=== PATIENT | female | born 1990 | race Caucasian/White ===

== ENCOUNTER 2016-11-14 17:52 | Outpatient (CLI) | payer MEDICAID ==
[~2016-11-14] VITALS: Ht 165.1 cm; Wt 85.0 kg
[~2016-11-14 17:52] MED LIST: PRENATAL1 TA7 PO
[2016-11-14 18:08] VITALS: BP 100/69; PULSE 73; TEMP 98.8
[2016-11-14] MEDS ORDERED: MAKENA250 MG/1 M IM (18:13)
[2016-11-14 18:30] VITALS: BP 100/69; PULSE 73
[2016-11-14 19:00] VITALS: BP 106/68; PULSE 72; TEMP 97.8
[2016-11-14 19:19] LABS: PH 7 (5-8); SQUAMOUS EPITHELIAL 0-2 /hpf; URINE APPEARANCE Clear; URINE BACTERIA Rare /hpf; URINE BILIRUBIN Negative (NEGATIVE); URINE BLOOD Negative (NEGATIVE); URINE COLOR Yellow; URINE GLUCOSE Negative (NEGATIVE); URINE KETONE Negative (NEGATIVE); URINE RBC 0-2 /hpf; URINE UROBILINOGEN Negative (NEGATIVE); URINE WBC 0-2 /hpf
[2016-11-14 19:25] VITALS: BP 103/61; PULSE 73
== END 2016-11-14 19:37 | disposition home or self-care (01) ==
LOC: LDRO 17:52
PROVIDERS: Student in an Organized Health Care Education/Training Program
DX: O99.89 Other specified diseases and conditions complicating pregnancy, childbirth and the puerperium (principal); R10.9 Unspecified abdominal pain; Z3A.23 23 weeks gestation of pregnancy
CPT/HCPCS: J0702; J7120

== ENCOUNTER 2016-11-26 21:08 | Outpatient (CLI) | payer MEDICAID ==
[~2016-11-26 21:08] MED LIST changes: +MAKENA250 MG/1 M IM
[2016-11-26 21:30] VITALS: BP 123/71; PULSE 80
== END 2016-11-26 22:36 | disposition home or self-care (01) ==
LOC: LDRO 21:08
DX: N89.8 Other specified noninflammatory disorders of vagina (principal); Z3A.25 25 weeks gestation of pregnancy

== ENCOUNTER 2016-12-04 18:11 | Outpatient (CLI) | payer MEDICAID ==
[~2016-12-04] VITALS: Ht 160 cm; Wt 84.1 kg
[2016-12-04 17:38] VITALS: BP 105/67; PULSE 80; TEMP 98.1
[2016-12-04 17:45] VITALS: BP 105/67; PULSE 80; TEMP 98.1
== END 2016-12-04 19:10 | disposition home or self-care (01) ==
LOC: LDRO 18:11
DX: O26.893 Other specified pregnancy related conditions, third trimester (principal); M54.9 Dorsalgia, unspecified; Z3A.26 26 weeks gestation of pregnancy

== ENCOUNTER 2016-12-25 12:02 | Outpatient (CLI) | payer MEDICAID ==
[~2016-12-25] VITALS: Ht 165.1 cm; Wt 88.6 kg
[2016-12-25 12:21] VITALS: BP 109/67; PULSE 82; TEMP 98.1
[2016-12-25] MEDS ORDERED: FLAGYL500 MG PO (12:27)
== END 2016-12-25 14:10 | disposition home or self-care (01) ==
LOC: LDRO 12:02 → LDR 12:10 → LDRO 14:10
DX: O46.93 Antepartum hemorrhage, unspecified, third trimester (principal); O32.1XX0 Maternal care for breech presentation, not applicable or unspecified; N89.8 Other specified noninflammatory disorders of vagina; Z3A.29 29 weeks gestation of pregnancy
CPT/HCPCS: OP

== ENCOUNTER 2017-02-13 07:10 | Outpatient (CLI) | payer MEDICAID ==
[~2017-02-13] VITALS: Ht 165.1 cm; Wt 90.0 kg
[2017-02-13 06:14] VITALS: BP 102/64; PULSE 85; TEMP 98.1
[~2017-02-13 07:10] MED LIST changes: +FLAGYL500 MG PO
[2017-02-13 08:15] VITALS: BP 112/71; PULSE 78
[2017-02-13 08:45] VITALS: BP 99/56; PULSE 80
== END 2017-02-13 08:55 | disposition home or self-care (01) ==
LOC: LDRO 07:10
DX: Z34.83 Encounter for supervision of other normal pregnancy, third trimester (principal); Z3A.36 36 weeks gestation of pregnancy

== ENCOUNTER 2017-03-06 07:05 | Inpatient (IN) | payer MEDICAID ==
[2017-03-06] VITALS (44 sets, daily range): BP systolic 74–151; BP diastolic 39–88; PULSE 10–126; TEMP 97.7–98.4
[~2017-03-06] VITALS: Ht 165.1 cm; Wt 90.9 kg
[2017-03-06 08:46] LABS: BASO % 0.4 % (0.0-2.0); EOS # 0.1 (0.0-0.7); EOS % 1.8 % (0-4.0); GRAN % 67.7 % (42.2-75.2); LYMPH # 1.6 (1.2-3.4); LYMPH % 21.8 % (20.0-51.0); MEAN CELL VOLUME 87 fl (80.0-100.0); MEAN CORPUSCULAR HEMOGLOBIN 30 pg (27.0-31.0); MEAN CORPUSCULAR HGB CONC 34 g/dl (33.0-37.0); MEAN PLATELET VOLUME 10.4 fl (7.4-10.4); MONO # 0.6 (0.1-0.6); MONO % 7.6 % (1.7-9.3); PLATELET COUNT 142 K/mm3 (130-400); RED BLOOD COUNT 4.01 M/mm3 (4.10-5.30); REDCELL DISTRIBUTION WIDTH-CV 13.9 % (11.5-14.5); WHITE BLOOD COUNT 7.4 K/mm3 (4.8-10.8)
[2017-03-06 09:06] LABS: HEMATOCRIT 34.9 % (37.0-47.0)
[2017-03-07 03:05] VITALS: BP 112/59; PULSE 90; TEMP 97.4
[2017-03-07 07:10] VITALS: BP 104/67; PULSE 100; TEMP 98.4
[2017-03-07 07:40] LABS: HEMATOCRIT 28.9 % (37.0-47.0); HEMOGLOBIN 9.9 g/dl (12.5-16.0)
[2017-03-07 12:35] VITALS: BP 99/67; PULSE 83; TEMP 98.5
[2017-03-07 16:25] VITALS: BP 99/57; PULSE 82; TEMP 97.9
[2017-03-07 19:15] VITALS: BP 103/64; PULSE 81; TEMP 97.4
[2017-03-08 08:14] VITALS: BP 99/63; PULSE 82
[2017-03-08] MEDS ORDERED: PERCOCET 325 MG1 TA2 PO (09:09)
[2017-03-08] MEDS ORDERED: IBU600 MG PO (09:09)
[2017-03-08] MEDS ORDERED: FERROUS SU325 MG/TAB PO (09:09)
== END 2017-03-08 11:55 | disposition home or self-care (01) | DRG 775 ==
LOC: LDR 07:05 → OB 07:05 → LDR 08:56 → OB 21:24 → EDSTATUS 03-11 08:52 → LDRO 03-11 12:40
PROVIDERS: Obstetrics & Gynecology
PROC: 10E0XZZ Delivery of Products of Conception, External Approach (ICD-10-PCS; principal; 2017-03-06)
PROC: 0HQ9XZZ Repair Perineum Skin, External Approach (ICD-10-PCS; 2017-03-06)
DX: O75.89 Other specified complications of labor and delivery (principal); O34.32 Maternal care for cervical incompetence, second trimester; O70.0 First degree perineal laceration during delivery; Z3A.39 39 weeks gestation of pregnancy; Z37.0 Single live birth
CPT/HCPCS: J2400; J2405; J2590; J2795; J7120